=== PATIENT | female | born 2000 | race Caucasian/White ===

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

== ENCOUNTER → 2018-01-09 | Outpatient (CLI) | payer OTHER ==
[2018-01-09 18:12] LABS: ESTIMATED AVERAGE GLUCOSE 114 MG/DL (60-110); HEMOGLOBIN A1c 5.6 %
[2018-01-09 18:23] LABS: FREE T4 1.33 NG/DL (0.78-1.33)
[2018-01-11 14:27] LABS: INSULIN LEVEL 89.8 uIU/mL (2.6-24.9)
== END ==
LOC: M LAB 17:00
DX: E78.5 Hyperlipidemia, unspecified (principal); K76.0 Fatty (change of) liver, not elsewhere classified
CPT/HCPCS: 83525

== ENCOUNTER 2018-01-11 08:07 | Day surgery (SDC) | payer OTHER ==
[~2018-01-11 08:07] MED LIST: LIDOCAINE 2% INJ 100 MG/5 ML SDV (FOR ANES.) As Ordered
[2018-01-11] MEDS ORDERED: PROPOFOL 200 MG/20 ML VIAL As Ordered ×2 (08:17)
== END 2018-01-11 10:10 | disposition home or self-care (01) ==
LOC: M OPP 08:07
DX: K64.8 Other hemorrhoids (principal); K52.9 Noninfective gastroenteritis and colitis, unspecified; K92.1 Melena; K76.0 Fatty (change of) liver, not elsewhere classified; Z87.09 Personal history of other diseases of the respiratory system
CPT/HCPCS: 45380